=== PATIENT | male | born 1940 | race Caucasian/White ===

== ENCOUNTER 2017-06-27 08:00 | Outpatient (CLI) | payer OTHER | END 2017-06-27 08:15 | disposition home or self-care (01) | LOC: LAB 08:00 | DX: D64.89 Other specified anemias (principal); N39.0 Urinary tract infection, site not specified; R10.84 Generalized abdominal pain; E03.8 Other specified hypothyroidism; E78.4 Other hyperlipidemia; R80.8 Other proteinuria; E11.9 Type 2 diabetes mellitus without complications; R73.09 Other abnormal glucose; E78.2 Mixed hyperlipidemia; E50.8 Other manifestations of vitamin A deficiency; I11.9 Hypertensive heart disease without heart failure; R73.02 Impaired glucose tolerance (oral) ==

== ENCOUNTER 2017-06-28 08:28 | Outpatient (CLI) | payer OTHER | END 2017-06-28 08:34 | disposition home or self-care (01) | LOC: LAB 08:28 | DX: Z80.0 Family history of malignant neoplasm of digestive organs (principal); D51.3 Other dietary vitamin B12 deficiency anemia; D69.59 Other secondary thrombocytopenia; K76.89 Other specified diseases of liver; I10 Essential (primary) hypertension; E03.8 Other specified hypothyroidism; E78.2 Mixed hyperlipidemia; Z86.010 Personal history of colon polyps; R97.0 Elevated carcinoembryonic antigen [CEA]; K87 Disorders of gallbladder, biliary tract and pancreas in diseases classified elsewhere; C25.8 Malignant neoplasm of overlapping sites of pancreas; K70.30 Alcoholic cirrhosis of liver without ascites; C22.8 Malignant neoplasm of liver, primary, unspecified as to type; E80.6 Other disorders of bilirubin metabolism ==

== ENCOUNTER 2017-06-29 07:11 | Outpatient (CLI) | payer OTHER | END 2017-06-29 07:26 | disposition home or self-care (01) | LOC: TOM 07:11 | DX: Z80.0 Family history of malignant neoplasm of digestive organs (principal); D51.3 Other dietary vitamin B12 deficiency anemia; D69.59 Other secondary thrombocytopenia; K76.89 Other specified diseases of liver; I10 Essential (primary) hypertension; E03.8 Other specified hypothyroidism; E78.2 Mixed hyperlipidemia; Z86.010 Personal history of colon polyps; R97.0 Elevated carcinoembryonic antigen [CEA]; R94.5 Abnormal results of liver function studies; E80.6 Other disorders of bilirubin metabolism | CPT/HCPCS: 74177; Q9965 ==

== ENCOUNTER 2017-12-29 07:17 | Outpatient (CLI) | payer OTHER | END 2017-12-29 09:03 | disposition home or self-care (01) | LOC: LAB 07:17 | DX: D64.89 Other specified anemias (principal); N39.0 Urinary tract infection, site not specified; R10.84 Generalized abdominal pain; E03.8 Other specified hypothyroidism; E55.9 Vitamin D deficiency, unspecified; R80.8 Other proteinuria; E11.9 Type 2 diabetes mellitus without complications; E78.2 Mixed hyperlipidemia; I25.10 Atherosclerotic heart disease of native coronary artery without angina pectoris; I11.9 Hypertensive heart disease without heart failure ==

== ENCOUNTER → 2018-01-09 07:19 | Outpatient (CLI) | payer OTHER | END | disposition home or self-care (01) | LOC: LAB 07:19 | DX: Z80.0 Family history of malignant neoplasm of digestive organs (principal); D51.3 Other dietary vitamin B12 deficiency anemia; D69.59 Other secondary thrombocytopenia; K76.89 Other specified diseases of liver; I10 Essential (primary) hypertension; E03.8 Other specified hypothyroidism; E78.2 Mixed hyperlipidemia; Z86.010 Personal history of colon polyps; R97.0 Elevated carcinoembryonic antigen [CEA]; E80.7 Disorder of bilirubin metabolism, unspecified; R94.5 Abnormal results of liver function studies; D50.8 Other iron deficiency anemias; D51.8 Other vitamin B12 deficiency anemias; K90.89 Other intestinal malabsorption; R97.8 Other abnormal tumor markers; C22.9 Malignant neoplasm of liver, not specified as primary or secondary ==

== ENCOUNTER 2018-04-18 07:42 | Outpatient (CLI) | payer OTHER | END 2018-04-18 15:00 | disposition home or self-care (01) | LOC: LAB 07:42 | DX: D51.3 Other dietary vitamin B12 deficiency anemia (principal); D69.59 Other secondary thrombocytopenia; E80.6 Other disorders of bilirubin metabolism ==

== ENCOUNTER → 2018-04-26 | Outpatient (CLI) | payer OTHER | END | disposition home or self-care (01) | LOC: RAD 501 13:48 | DX: H43.822 Vitreomacular adhesion, left eye (principal) ==

== ENCOUNTER 2018-07-14 07:47 | Outpatient (CLI) | payer OTHER | END 2018-07-14 16:55 | disposition home or self-care (01) | LOC: LAB 07:47 | DX: D64.89 Other specified anemias (principal); N39.0 Urinary tract infection, site not specified; R10.9 Unspecified abdominal pain; E03.8 Other specified hypothyroidism; E78.49 Other hyperlipidemia; R80.8 Other proteinuria; E11.9 Type 2 diabetes mellitus without complications; N40.0 Benign prostatic hyperplasia without lower urinary tract symptoms; Z12.5 Encounter for screening for malignant neoplasm of prostate; I11.9 Hypertensive heart disease without heart failure; I25.10 Atherosclerotic heart disease of native coronary artery without angina pectoris ==

== ENCOUNTER 2018-12-19 07:16 | Outpatient (CLI) | payer OTHER | END 2018-12-19 07:40 | disposition home or self-care (01) | LOC: LAB 07:16 | DX: D51.3 Other dietary vitamin B12 deficiency anemia (principal); D69.59 Other secondary thrombocytopenia; K76.89 Other specified diseases of liver; I10 Essential (primary) hypertension; E03.8 Other specified hypothyroidism; E78.2 Mixed hyperlipidemia; Z86.010 Personal history of colon polyps; R97.0 Elevated carcinoembryonic antigen [CEA]; E80.7 Disorder of bilirubin metabolism, unspecified; R94.5 Abnormal results of liver function studies; D50.8 Other iron deficiency anemias; D51.8 Other vitamin B12 deficiency anemias; R97.8 Other abnormal tumor markers; E55.9 Vitamin D deficiency, unspecified; C22.9 Malignant neoplasm of liver, not specified as primary or secondary; C25.9 Malignant neoplasm of pancreas, unspecified; R74.8 Abnormal levels of other serum enzymes ==

== ENCOUNTER 2019-01-11 08:00 | Outpatient (CLI) | payer OTHER | END 2019-01-11 08:13 | disposition home or self-care (01) | LOC: LAB 08:00 | DX: D64.89 Other specified anemias (principal); N39.0 Urinary tract infection, site not specified; R10.84 Generalized abdominal pain; E03.8 Other specified hypothyroidism; E78.49 Other hyperlipidemia; E07.89 Other specified disorders of thyroid; E11.9 Type 2 diabetes mellitus without complications; I10 Essential (primary) hypertension; Z13.6 Encounter for screening for cardiovascular disorders ==

== ENCOUNTER → 2019-04-21 07:21 | Outpatient (CLI) | payer OTHER | END | disposition home or self-care (01) | LOC: LAB 07:21 | DX: D50.8 Other iron deficiency anemias (principal); I10 Essential (primary) hypertension; Z80.0 Family history of malignant neoplasm of digestive organs; D51.3 Other dietary vitamin B12 deficiency anemia; D69.59 Other secondary thrombocytopenia; K76.89 Other specified diseases of liver; E03.8 Other specified hypothyroidism; E78.2 Mixed hyperlipidemia; Z86.010 Personal history of colon polyps; R97.0 Elevated carcinoembryonic antigen [CEA]; E80.7 Disorder of bilirubin metabolism, unspecified; R94.5 Abnormal results of liver function studies; G20 Parkinson's disease; D51.8 Other vitamin B12 deficiency anemias ==

== ENCOUNTER 2019-04-21 08:10 | Outpatient (CLI) | payer OTHER | END 2019-04-21 08:14 | disposition home or self-care (01) | LOC: SONOGRAMA 08:10 → MAMO-SONO 08:45 | DX: E04.1 Nontoxic single thyroid nodule (principal) ==

== ENCOUNTER 2019-04-27 09:17 | Outpatient (CLI) | payer OTHER | END 2019-04-27 09:18 | disposition home or self-care (01) | LOC: MRI 09:17 | DX: G20 Parkinson's disease (principal) | CPT/HCPCS: 70551 ==

== ENCOUNTER 2019-08-30 06:49 | Outpatient (CLI) | payer OTHER | END 2019-08-30 06:58 | disposition home or self-care (01) | LOC: LAB 06:49 | PROVIDERS: ATTEND Internal Medicine Hematology & Oncology | DX: D50.8 Other iron deficiency anemias (principal); I10 Essential (primary) hypertension; D51.8 Other vitamin B12 deficiency anemias; E55.9 Vitamin D deficiency, unspecified; C25.9 Malignant neoplasm of pancreas, unspecified; R97.8 Other abnormal tumor markers; R97.0 Elevated carcinoembryonic antigen [CEA]; C25.8 Malignant neoplasm of overlapping sites of pancreas; Z80.0 Family history of malignant neoplasm of digestive organs; D51.3 Other dietary vitamin B12 deficiency anemia; D69.59 Other secondary thrombocytopenia; K76.89 Other specified diseases of liver; E03.8 Other specified hypothyroidism; E78.2 Mixed hyperlipidemia; Z86.010 Personal history of colon polyps; E80.7 Disorder of bilirubin metabolism, unspecified; R94.5 Abnormal results of liver function studies; G20 Parkinson's disease ==

== ENCOUNTER 2020-01-14 07:39 | Outpatient (CLI) | payer OTHER | END 2020-01-14 07:50 | disposition home or self-care (01) | LOC: LAB 07:39 | DX: I11.9 Hypertensive heart disease without heart failure (principal); E78.49 Other hyperlipidemia; D64.89 Other specified anemias; N39.0 Urinary tract infection, site not specified; R10.84 Generalized abdominal pain; E03.8 Other specified hypothyroidism; E11.9 Type 2 diabetes mellitus without complications; R01.0 Benign and innocent cardiac murmurs ==

== ENCOUNTER 2020-02-20 07:46 | Outpatient (CLI) | payer OTHER | END 2020-02-20 07:52 | disposition home or self-care (01) | LOC: LAB 07:46 | PROVIDERS: ATTEND Internal Medicine Hematology & Oncology | DX: D50.8 Other iron deficiency anemias (principal); I10 Essential (primary) hypertension; D51.8 Other vitamin B12 deficiency anemias; E55.9 Vitamin D deficiency, unspecified; E03.8 Other specified hypothyroidism; C25.9 Malignant neoplasm of pancreas, unspecified; R97.8 Other abnormal tumor markers; R97.0 Elevated carcinoembryonic antigen [CEA]; R97.20 Elevated prostate specific antigen [PSA]; Z80.0 Family history of malignant neoplasm of digestive organs; D51.3 Other dietary vitamin B12 deficiency anemia; D69.59 Other secondary thrombocytopenia; K76.89 Other specified diseases of liver; E78.2 Mixed hyperlipidemia; Z86.010 Personal history of colon polyps; E80.6 Other disorders of bilirubin metabolism; G20 Parkinson's disease; R94.5 Abnormal results of liver function studies ==

== ENCOUNTER → 2020-06-23 07:56 | Outpatient (CLI) | payer OTHER | END | disposition home or self-care (01) | LOC: LAB 07:56 | PROVIDERS: ATTEND Internal Medicine Cardiovascular Disease | DX: D64.89 Other specified anemias (principal); R10.84 Generalized abdominal pain; E03.8 Other specified hypothyroidism; E55.9 Vitamin D deficiency, unspecified; I10 Essential (primary) hypertension; E78.2 Mixed hyperlipidemia ==

== ENCOUNTER → 2020-08-19 08:19 | Outpatient (CLI) | payer OTHER | END | disposition home or self-care (01) | LOC: LAB 08:19 | PROVIDERS: ATTEND Internal Medicine Hematology & Oncology | DX: Z80.0 Family history of malignant neoplasm of digestive organs (principal); D51.3 Other dietary vitamin B12 deficiency anemia; K76.89 Other specified diseases of liver; I10 Essential (primary) hypertension; E03.9 Hypothyroidism, unspecified; E78.2 Mixed hyperlipidemia; Z86.010 Personal history of colon polyps; R97.0 Elevated carcinoembryonic antigen [CEA]; E80.7 Disorder of bilirubin metabolism, unspecified; R94.5 Abnormal results of liver function studies; G20 Parkinson's disease ==

== ENCOUNTER 2023-04-25 07:44 | Outpatient (CLI) | payer OTHER ==
[2023-04-25 09:32] LABS: HEMATOCRIT 37.7 % (39.0-48.0); MEAN CELL VOLUME 90.3 fL (80.0-100.00); MEAN CORPUSCULAR HEMOGLOBIN 31.2 pg (27.00-32.0); MEAN CORPUSCULAR HGB CONC 34.6 g/dl (32.0-36.0); PLATELET COUNT 132 K/uL (150-450); RED BLOOD COUNT 4.17 M/uL (4.00-6.00); RED CELL DISTRIBUTION WIDTH 13.6 % (11.5-14.5)
[2023-04-25 09:36] LABS: ALBUMIN 3.8 gm/dL (3.4-5.0); BILIRUBIN TOTAL 0.57 mg/dL (0.3-1.2); CALCIUM 9.5 mg/dL (8.5-10.1); CREATININE SERUM 1.36 mg/dL (0.70-1.30); GFR 50.29; GLOBULINA 3.2 G/DL (2.4-3.5); POTASSIUM 4.45 mEq/L (3.5-5.1); PROSTATIC SPECIFIC ANTIGEN 3.42 NG/ML (0.010-4.00); T4 FREE 1.27 NG/ML (0.76-1.46); TSH 2.85 uIU/mL (0.358-3.74)
[2023-04-25 12:40] LABS: FOLIC ACID 17.78 ng/ml (4.78-20); VITAMIN D3 25 HYDROXY 43.97 ng/ml (30-120)
[2023-04-26 15:47] LABS: MANUAL PLATELET COUNT 246
[2023-04-26 15:48] LABS: PLATELET ESTIMATE NORMAL (NORMAL)
== END 2023-04-25 07:45 | disposition home or self-care (01) ==
LOC: LAB 07:44
PROVIDERS: ATTEND Internal Medicine Hematology & Oncology
DX: Z80.0 Family history of malignant neoplasm of digestive organs (principal); D51.3 Other dietary vitamin B12 deficiency anemia; D69.59 Other secondary thrombocytopenia; K76.89 Other specified diseases of liver; I10 Essential (primary) hypertension; E03.9 Hypothyroidism, unspecified; E78.2 Mixed hyperlipidemia; Z86.010 Personal history of colon polyps; R97.0 Elevated carcinoembryonic antigen [CEA]; E80.7 Disorder of bilirubin metabolism, unspecified; R94.5 Abnormal results of liver function studies; E55.9 Vitamin D deficiency, unspecified

== ENCOUNTER 2023-05-16 07:03 | Outpatient (CLI) | payer OTHER | END 2023-05-16 07:17 | disposition home or self-care (01) | LOC: TOM 07:03 | PROVIDERS: ATTEND Internal Medicine Hematology & Oncology | DX: D51.3 Other dietary vitamin B12 deficiency anemia (principal); D69.59 Other secondary thrombocytopenia; K76.89 Other specified diseases of liver; I10 Essential (primary) hypertension; E03.9 Hypothyroidism, unspecified; E78.2 Mixed hyperlipidemia; Z86.010 Personal history of colon polyps; R97.0 Elevated carcinoembryonic antigen [CEA]; E80.7 Disorder of bilirubin metabolism, unspecified; R94.5 Abnormal results of liver function studies; G20.C Parkinsonism, unspecified | CPT/HCPCS: 71270; 74178; Q9965 ==

== ENCOUNTER 2023-06-22 08:11 | Outpatient (CLI) | payer OTHER | END 2023-06-22 08:22 | disposition home or self-care (01) | LOC: SONOGRAMA 08:11 | PROVIDERS: ATTEND General Practice | DX: N40.0 Benign prostatic hyperplasia without lower urinary tract symptoms (principal); R97.0 Elevated carcinoembryonic antigen [CEA] ==

== ENCOUNTER 2023-09-06 08:22 | Outpatient (CLI) | payer OTHER ==
[2023-09-06 09:17] LABS: HEMATOCRIT 36.6 % (39.0-48.0); HEMOGLOBIN 12.5 g/dL (13-16.00); MEAN CELL VOLUME 89.8 fL (80.0-100.00); MEAN CORPUSCULAR HEMOGLOBIN 30.7 pg (27.00-32.0); MEAN CORPUSCULAR HGB CONC 34.1 g/dl (32.0-36.0); RED BLOOD COUNT 4.08 M/uL (4.00-6.00); RED CELL DISTRIBUTION WIDTH 14.2 % (11.5-14.5)
[2023-09-06 09:18] LABS: PLATELET COUNT 110 K/uL (150-450)
[2023-09-06 10:04] LABS: BILIRUBIN TOTAL 0.87 mg/dL (0.3-1.2); CALCIUM 9.5 mg/dL (8.5-10.1); CREATININE SERUM 1.47 mg/dL (0.70-1.30); GFR 45.98; POTASSIUM 3.89 mEq/L (3.5-5.1); PROSTATIC SPECIFIC ANTIGEN 3.15 NG/ML (0.010-4.00); T4 FREE 1.21 NG/ML (0.76-1.46); TSH 2.78 uIU/mL (0.358-3.74)
[2023-09-06 10:58] LABS: FOLIC ACID 13.56 ng/ml (4.78-20)
[2023-09-08 13:24] LABS: MANUAL PLATELET COUNT 162
[2023-09-08 13:25] LABS: PLATELET ESTIMATE NORMAL (NORMAL)
== END 2023-09-06 08:23 | disposition home or self-care (01) ==
LOC: LAB 08:22
PROVIDERS: ATTEND Internal Medicine Hematology & Oncology
DX: Z80.0 Family history of malignant neoplasm of digestive organs (principal); D51.3 Other dietary vitamin B12 deficiency anemia; D69.59 Other secondary thrombocytopenia; K76.89 Other specified diseases of liver; I10 Essential (primary) hypertension; E03.9 Hypothyroidism, unspecified; E78.2 Mixed hyperlipidemia; Z86.010 Personal history of colon polyps; R97.0 Elevated carcinoembryonic antigen [CEA]; E80.7 Disorder of bilirubin metabolism, unspecified; R94.5 Abnormal results of liver function studies; G20.C Parkinsonism, unspecified; D50.8 Other iron deficiency anemias; R79.9 Abnormal finding of blood chemistry, unspecified; R74.02 Elevation of levels of lactic acid dehydrogenase [LDH]

== ENCOUNTER 2024-05-15 13:36 | Outpatient (CLI) | payer OTHER | END 2024-05-15 13:46 | disposition home or self-care (01) | LOC: MRI 13:36 | DX: L08.9 Local infection of the skin and subcutaneous tissue, unspecified (principal); M27.2 Inflammatory conditions of jaws | CPT/HCPCS: 70543; Q9965 ==

== ENCOUNTER 2025-02-06 08:11 | Outpatient (CLI) | payer OTHER ==
[2025-02-06 09:36] LABS: BASO % 0.7 % (0.1-1.2); EOS # 0.15 (0.04-0.54); EOS % 3.3 % (0.7-7.0); LYMPH # 1.17 (1.18-3.74); LYMPH % 25.4 % (19.3-53.1); MEAN PLATELET VOLUME 12.60 fl (9.4-12.4); MONO # 0.41 (0.24-0.82); MONO % 8.9 % (4.7-12.5); NEUT # 2.83 (1.56-6.13); NEUT % 61.3 % (34.0-71.1); RED CELL DISTRIBUTION WIDTH 13.5 % (11.6-14.4)
[2025-02-06 09:39] LABS: URINE APPEARANCE Clear; URINE BILIRRUBIN Negative (NEGATIVE); URINE BLOOD Negative; URINE COLOR Yellow; URINE GLUCOSE Negative (NEGATIVE); URINE KETONE Negative (NEGATIVE); URINE LEUKOCYTE Negative; URINE NITRATE Negative; URINE PROTEIN Negative (NEGATIVE); URINE UROBILINOGEN 1.0 E.U./dl
[2025-02-06 09:45] LABS: URINE BACTERIA 33.5 uL (0.0-1933); URINE EPITHELIAL CELLS 6.1 uL (0.0-38.8); URINE RBC 2.6 uL (0.0-20.8); URINE WBC 4.0 uL (0.0-23.2)
[2025-02-06 09:49] LABS: URINE CAST 0.00 uL (0.0-1.40)
[2025-02-06 10:11] LABS: INR 1.14
[2025-02-06 10:14] LABS: ALT/SGPT 12.0 U/L (12-78); AST/SGOT 11.0 U/L (15-37); BILIRUBIN TOTAL 0.59 mg/dL (0.3-1.2); BUN CREA RATIO 17.0 (7.0-25.0); CREATININE SERUM 1.27 mg/dL (0.70-1.30); GFR 54.29; GLOBULINA 3.0 G/DL (2.4-3.5); GLUCOSE FASTING 95.0 mg/dL (65-100); LDH 142.0 U/L (87-241); OSMOLALITY SERUM 284.0 MOSM/KG (275-295)
== END 2025-02-06 08:20 | disposition home or self-care (01) ==
LOC: LAB 08:11
DX: K09.0 Developmental odontogenic cysts (principal); K12.2 Cellulitis and abscess of mouth; Z01.818 Encounter for other preprocedural examination; D50.8 Other iron deficiency anemias; R79.9 Abnormal finding of blood chemistry, unspecified; I10 Essential (primary) hypertension; R74.02 Elevation of levels of lactic acid dehydrogenase [LDH]; K76.89 Other specified diseases of liver; Z80.0 Family history of malignant neoplasm of digestive organs; D51.3 Other dietary vitamin B12 deficiency anemia; D69.59 Other secondary thrombocytopenia; E03.9 Hypothyroidism, unspecified; E78.2 Mixed hyperlipidemia; R97.0 Elevated carcinoembryonic antigen [CEA]; E80.7 Disorder of bilirubin metabolism, unspecified; R94.5 Abnormal results of liver function studies; G20.C Parkinsonism, unspecified